=== PATIENT | male | born 1980 | race Caucasian/White ===

== ENCOUNTER 2018-07-22 12:52 | Emergency (ER) | payer OTHER ==
[2018-07-22 14:52] VITALS: BP 146/92
--- NOTE | 2018-07-22 15:08 | UC ---
Back Pain HPI - HPI Summary HPI Summary: Lower right side back when he woke up this morning. has history of flare ups with this type of back pain. did yard work yesterday. denies other known trauma. - History of Current Complaint Chief Complaint: UCBackPain Stated Complaint: BACK PAIN Time Seen by Provider: 07/22/18 15:02 Hx Obtained From: Patient Onset/Duration: Sudden Onset, Lasting Hours Timing: Constant Severity Initially: Severe Severity Currently: Severe Pain Intensity: 9 Back Pain: Is Discrete @ Character: Sharp, Aching Aggravating Factor(s): Movement Alleviating Factor(s): Position - Allergies/Home Medications Allergies/Adverse Reactions: Allergies Allergy/AdvReac Type Severity Reaction Status Date / Time No Known Allergies Allergy Verified 07/22/18 14:51 Home Medications: Home Medications Acetaminophen [Tylenol Extra Strength] 1,500 mg PO Q4HR PRN 07/22/18 [History Confirmed 07/22/18] PMH/Surg Hx/FS Hx/Imm Hx Previously Healthy: Yes - Surgical History Surgical History: None - Family History Known Family History: Positive: None - Social History Alcohol Use: Occasionally Substance Use Type: None Smoking Status (MU): Never Smoked Tobacco Review of Systems All Other Systems Reviewed And Are Negative: Yes Constitutional: Positive: Negative Skin: Positive: Negative Eyes: Positive: Negative ENT: Positive: Negative Respiratory: Positive: Negative Cardiovascular: Positive: Negative Gastrointestinal: Positive: Negative Genitourinary: Positive: Negative Motor: Positive: Negative Neurovascular: Positive: Negative Musculoskeletal: Positive: Arthralgia, Myalgia Neurological: Positive: Negative Psychological: Positive: Negative Is Patient Immunocompromised?: No Physical Exam Triage Information Reviewed: Yes Appearance: Well-Appearing, Well-Nourished, Pain Distress Vital Signs: Initial Vital Signs Temp 98.8 F 07/22/18 14:48 Pulse 75 07/22/18 14:48 Resp 16 07/22/18 14:48 BP 146/92 07/22/18 14:48 Pulse Ox 98 07/22/18 14:48 Vital Signs Reviewed: Yes Eye Exam: Normal ENT Exam: Normal Dental Exam: Normal Neck exam: Normal Respiratory Exam: Normal Cardiovascular Exam: Normal Abdominal Exam: Normal Bowel Sounds: Positive: Present Musculoskeletal: Positive: No Edema, Strength Limited @, ROM Limited @ Neurological Exam: Normal Psychological Exam: Normal Skin Exam: Normal Back Pain Course/Dx - Course Course Of Treatment: history obtained, exam performed, meds reviewed, educated on proper stretching and treatment of back - Differential Dx/Diagnosis Differential Diagnosis/HQI/PQRI: Strain, Sprain Provider Diagnosis: Sacroiliitis Discharge - Sign-Out/Discharge Documenting (check all that apply): Patient Departure All imaging exams completed and their final reports reviewed: No Studies - Discharge Plan Condition: Stable Disposition: HOME Patient Education Materials: Sacroiliitis (ED) Referrals: Terry Olivo MD [Primary Care Provider] - Additional Instructions: you can take 600 mg of ibuprofen every 6 hours for pain, flexeril as needed for spasm recommend looking of [employer] for stretching and strengthing of the low back due to the frequent nature of these episodes. heat as necessary - Billing Disposition and Condition Condition: STABLE Disposition: Home
[2018-07-22] MEDS ORDERED: Ibuprofen TAB* 600 MG PO ONE (15:15)
[2018-07-22] MEDS ORDERED: Cyclobenzaprine TAB* 10 MG PO ONE (15:16)
== END 2018-07-22 15:27 | disposition home or self-care (01) ==
LOC: UCCORT 12:52
DX: M46.1 Sacroiliitis, not elsewhere classified (principal)
CPT/HCPCS: 99202; A9270-GY; G0463